=== PATIENT | female | born 1965 ===

== ENCOUNTER 2024-04-21 12:44 | Outpatient (REF) | payer BC, SELFPAY ==
[2024-04-21 15:01] LABS: HCT 43.8 % (36.0-46.0); HGB 14.4 g/dL (11.2-15.7); MCH 29.6 pg (27.0-33.0); MCHC 32.9 % (32.0-36.0); MCV 90 fL (80-95); MPV 11.7 fL (8.0-11.0); Platelet Count 230 10^3/uL (130-400); RBC 4.87 10^6/uL (3.93-5.22); RDW 13.2 % (11.7-14.6); RDW-SD 43.8 fL; WBC 5.82 10^3/uL (4.4-10.8)
[2024-04-21 19:20] LABS: ALT 20 U/L (14-59); AST 22 U/L (15-37); Alkaline Phosphatase 62 U/L (46-116); Anion Gap 12.9 mmol/L (3-11); BUN 16 mg/dL (7-18); Bilirubin, Total 0.34 mg/dL (0.2-1.0); CO2 27.1 mmol/L (21.0-32.0); Calcium 9.4 mg/dL (8.5-10.1); Calculated LDL 164 mg/dL (<100); Chloride 103 mmol/L (98-107); Cholesterol 246 mg/dL (<200); Estimated GFR 64.49 (mL/min/1.73m2); Glucose 92 mg/dL (74-106); HDL Cholesterol 59 mg/dL (40-60); Potassium 3.9 mmol/L (3.5-5.1); Sodium 143 mmol/L (136-145); TSH (W/Ref FT4) 1.27 uIU/mL (0.36-3.74); Total Protein 7.8 g/dL (6.4-8.2); Triglyceride 119 mg/dL (<150); Vitamin D 25 Total 35.8 ng/mL (30-100)
== END 2024-04-21 12:45 | disposition home or self-care (01) ==
LOC: NCHCN 12:44
PROVIDERS: Visit Provider Family Medicine
DX: Z13.220 Encounter for screening for lipoid disorders (principal); R53.83 Other fatigue; Z86.39 Personal history of other endocrine, nutritional and metabolic disease
CPT/HCPCS: 80053; 80061; 82306; 85027; 84443

== ENCOUNTER 2025-04-13 11:24 | Outpatient (REF) | payer SELFPAY ==
--- NOTE | 2025-04-13 14:50 | PAPFT_PTH ---
PATIENT: Miranda Lopez LOC: [facility]#:[id number] AGE/SX: 59/F ROOM: RE04/13/[address]: ZANA: 1965 BED: DIS: 04/13/2025 SPEC #: [id number] RECD: 04/14/25 12:40 STATUS: SANTINO ELENA #: [id number] MARITZA: 04/13/25 14:[address]: Charlette Damian DEPT: [facility] Cytology RECD BY: Swathi Beltran ENTERED: 04/14/25 12:40 SP TYPE: PAPFT ARTIS DR: Kimberly Local Tissues: 1 - CX/ENDOCX FOR PAP SMEARS Procedures: PAP THIN PREP/[facility] Screening Comments: [id number]
== END 2025-04-13 11:25 | disposition home or self-care (01) ==
LOC: NCHCN 11:24
PROVIDERS: Visit Provider Family Medicine
DX: Z12.4 Encounter for screening for malignant neoplasm of cervix (principal)
CPT/HCPCS: 88142